=== PATIENT | male | born 1970 | race Caucasian/White ===

== ENCOUNTER 2019-10-19 06:51 | Emergency (ER) | payer BC ==
[~2019-10-19] VITALS: Ht 175.3 cm; Wt 93.0 kg
[2019-10-19 07:05] VITALS: Ht 175.3 cm; Wt 93.0 kg
[2019-10-19 09:11] VITALS: BP 131/88
== END 2019-10-19 09:11 | disposition home or self-care (01) ==
LOC: ED 06:51
DX: J11.1 Influenza due to unidentified influenza virus with other respiratory manifestations (principal)

== ENCOUNTER 2019-12-24 10:10 | Emergency (ER) | payer BC ==
[~2019-12-24] VITALS: Ht 175.3 cm; Wt 90.7 kg
[2019-12-24 10:25] VITALS: Ht 175.3 cm; Wt 90.7 kg
[2019-12-24 10:57] VITALS: BP 147/102
== END 2019-12-24 10:57 | disposition home or self-care (01) ==
LOC: ED 10:10
DX: J06.9 Acute upper respiratory infection, unspecified (principal); R51 Headache; Z20.828 Contact with and (suspected) exposure to other viral communicable diseases